=== PATIENT | female | born 1955 | race American Indian/Alaskan Native ===

== ENCOUNTER 2016-04-15 12:58 | Outpatient (CLI) | payer OTHER ==
--- NOTE | 2016-04-15 13:49 | Mammography Report ---
Bilateral mammogram: Patient with left mastectomy and reconstruction. Comparison to prior mammography in 2014 and 2015 is performed. Imaging of the left breast administration a generally fatty structure with some scattered benign-appearing calcifications. No suspicious findings or change from 2015. The right breast has a heterogeneously dense pattern. The findings are generally unchanged from 2014 and 2015 except that the small nodule that was newly described in 2015 is no longer identified. Ultrasound recommended at that time was not performed and is no longer needed. There are no currently suspicious findings. CAD is not captured. Impression: Stable benign mammogram. Recommendation: Annual mammogram followup. BI-RADS CATEGORY: 1 = Negative ACR BI-RADS MAMMOGRAPHIC CODES: 0 = Needs additional imaging evaluation; 1 = Negative; 2 = Benign; 3 = Probably benign; 4 = Suspicious; 5 = Malignant; 6 = Known biopsy-proven malignancy COMMENT: 1. Dense breast tissue, i.e., adenosis, fibrocystic changes, etc., may obscure an underlying neoplasm. 2. Approximately 10% of cancers are not detected with mammography. 3. A negative mammography report should not delay biopsy if a clinically suspicious mass is present.
== END 2016-04-15 12:59 | disposition home or self-care (01) ==
LOC: MAMMO 12:58
DX: C50.919 Malignant neoplasm of unspecified site of unspecified female breast (principal); R92.8 Other abnormal and inconclusive findings on diagnostic imaging of breast; R92.1 Mammographic calcification found on diagnostic imaging of breast; Z90.12 Acquired absence of left breast and nipple
CPT/HCPCS: 77066; G0204

== ENCOUNTER 2020-05-07 07:33 | Outpatient (CLI) | payer MEDICARE ==
--- NOTE | 2020-05-07 10:24 | Mammography Report ---
ULTRASOUND GUIDED LEFT BREAST BIOPSY, 05/07/2020 BILATERAL DIAGNOSTIC MAMMOGRAM CLINICAL INFORMATION / INDICATION: ABNORMAL MAMMOGRAM. Patient has abnormality in the left breast at the 11:00 position approximately 7 cm from the nipple which requires further evaluation and biopsy COMPARISON: Left breast ultrasound from 04/23/2020 PROCEDURE: Risks, benefits, and indications to the procedure were discussed with the patient in detail, includin g bleeding, infection, hematoma formation, and inadequate tissue sampling. The patient agreed to proc eed with both verbal and written consent. A timeout procedure was performed with two patient identifi ers. The breast was prepped and draped in the usual sterile fashion. Lidocaine 1% was used for local anest hesia. Under direct ultrasound guidance, 3 14-gauge core samples were obtained of the left breast fin ding. A biopsy marker was then placed. Biopsy device was removed and hemostasis achieved with manual pressure. A sterile dressing was applied to the skin. The patient tolerated the procedure without difficulty. No complications were encountered. Postbiopsy instructions were discussed with the patient and given in writing. Specimens were sent to pathology. The patient was then sent for a confirmatory mammogram to demonstrate adequate clip positioning in th e area in question. IMPRESSION: 1. Technically successful ultrasound guided left breast breast biopsy. 2. The post procedure mammogram did not demonstrate the left-sided breast clip; however, there is a s mall amount of breast tissue and there is difficulty getting the entire [id number] to demonstrate the clip which is fairly posterior. Also placement of the clip was clearly seen under ultrasound. Biopsy results are pending and will be reported in an addendum. Signer Name: Brandon Rod MD Signed: 05/07/2020 10:20 AM Workstation Name: [id number]
== END 2020-05-07 07:34 | disposition home or self-care (01) ==
LOC: US 07:33
PROVIDERS: ATTEND Surgery
DX: N63.22 Unspecified lump in the left breast, upper inner quadrant (principal); I10 Essential (primary) hypertension; R92.8 Other abnormal and inconclusive findings on diagnostic imaging of breast; Z85.3 Personal history of malignant neoplasm of breast; Z79.899 Other long term (current) drug therapy
CPT/HCPCS: 77066; 88305; 88341; 88342

== ENCOUNTER 2020-06-04 09:03 | Outpatient (CLI) | payer MEDICARE ==
[2020-06-04 10:25] LABS: Blood Urea Nitrogen 10 mg/dL (7-17)
--- NOTE | 2020-06-04 11:42 | Cat Scan Report ---
CT ABDOMEN AND PELVIS WITH CONTRAST HISTORY: MAIN. Breast cancer COMPARISON: None. TECHNIQUE: CT images of the abdomen and pelvis were obtained following administration of intravenous contrast. All CT scans at this location are performed using CT dose reduction for ALARA by means of automated exposure control. CONTRAST: 100 ml of intravenous contrast administered. FINDINGS: Lungs/bones: Mild increased interstitial prominence seen in lung bases. There is a nodular density a djacent to the pleura measuring 1.1 x 0.7 cm Abdomen/pelvis: Diffuse fatty infiltration of the liver. Heterogeneity is seen throughout the liver. No focal liver lesions seen. Spleen appears normal. Pancreas gallbladder appears normal. Bilateral k idneys appear normal. Adrenal glands show mild nodularity. Adrenal nodule left facet demonstrates ant erior 4 abnormal. There is incomplete distention of the left colon and sigmoid colon. Evaluation for wall thickening is limited. No surrounding inflammation is seen. No bowel obstruction is seen. Appendix appears normal. Atherosclerotic changes seen throughout the aorta. Portal vein is patent. A few mildly prominent per iportal nodes are seen. Largest periportal node measures 2.2 x 1.1 cm. IMPRESSION: 1. Increased interstitial prominence in the lung bases. There is a pulmonary nodule within left lower lung largest measuring 1.1 x 0.7 cm. Given patient's history of breast cancer CT chest is recommende d. 2. Fatty infiltration of the liver. 3. Prominent periportal nodes largest measuring 2.2 x 1.1 cm. 4. Left adrenal nodule does not fit the strict criteria for adenoma. Attentional follow-up recommende d. Signer Name: Mack Griffith MD Signed: 06/04/2020 11:38 AM Workstation Name: [email or web address]
--- NOTE | 2020-06-04 13:53 | Nuclear Medicine Report ---
NUCLEAR MEDICINE BONE SCAN, WHOLE BODY INDICATION: BREAST CANCER. TECHNIQUE: 25.5 mCi of Tc-99m MDP were injected IV. Whole body images were obtained. COMPARISON: Correlation is made with CT abdomen pelvis with contrast performed the same day.. FINDINGS: Skeletal Structures: Fairly symmetric, likely degenerative uptake is present involving the shoulders , hips, right knee and feet. Skeletal Lesions: None. Soft Tissues: Normal. Kidneys: Normal, symmetric activity. Additional Findings: None. IMPRESSION: Degenerative findings as described. No evidence for osseous metastasis on bone scan.. Signer Name: Jerrod Stern Jr, MD Signed: 06/04/2020 1:49 PM Workstation Name: [id number]
== END 2020-06-04 09:04 | disposition home or self-care (01) ==
LOC: NM 09:03
PROVIDERS: ATTEND Surgery
DX: C50.212 Malignant neoplasm of upper-inner quadrant of left female breast (principal); K76.0 Fatty (change of) liver, not elsewhere classified; R16.0 Hepatomegaly, not elsewhere classified; I70.0 Atherosclerosis of aorta; R91.1 Solitary pulmonary nodule
CPT/HCPCS: 36415; 74177; 78306; 82565; 84520; A9503; Q9967

== ENCOUNTER 2020-06-19 07:10 | Outpatient (CLI) | payer MEDICARE ==
[2020-06-19 07:53] LABS: Blood Urea Nitrogen 10 mg/dL (7-17)
--- NOTE | 2020-06-19 09:31 | Cat Scan Report ---
CT CHEST WITH CONTRAST INDICATION / CLINICAL INFORMATION: Breast cancer. TECHNIQUE: Axial CT images were obtained through the chest after 100 cc Omnipaque [address]. [address] scans at this location are performed using CT dose reduction for ALARA by means of automated exposure contr ol. COMPARISON: CT abdomen and pelvis with contrast from 06/04/2020. FINDINGS: HEART: No significant abnormality. VASCULATURE: The aorta is normal in caliber and mildly calcified. No significant coronary atheroscler osis or other significant abnormalities. LYMPH NODES: No significant adenopathy. TRACHEA AND BRONCHI:No significant abnormality. LUNGS: The previously described solid noncalcified posterior subpleural left lower lobe nodule is aga in seen measuring 9.3 x 5.8 mm on image 74 of series 2. This nodule previously measured 9.8 x 5.5 mm by remeasurement. No other suspicious nodule or mass. No suspicious area of consolidation. There is m ild bibasilar atelectasis. PLEURA: No significant pleural effusion. No pneumothorax. UPPER ABDOMEN: Unchanged hepatic steatosis and periportal adenopathy. No other significant abnormalit y. BONES: No significant abnormality. ADDITIONAL FINDINGS: Status post left mastectomy. No distinct mass in the right breast. IMPRESSION: 1. Left lower lobe nodule as above is consistent with metastatic disease until proven otherwise. No o ther evidence of metastatic disease in the chest. 2. Upper abdominal findings as above are unchanged with additional incidental findings as above. Signer Name: Merrill Jauregui MD Signed: 06/19/2020 9:27 AM Workstation Name: [id number]
== END 2020-06-19 07:11 | disposition home or self-care (01) ==
LOC: CT 07:10
PROVIDERS: ATTEND Surgery
DX: C50.212 Malignant neoplasm of upper-inner quadrant of left female breast (principal); R91.1 Solitary pulmonary nodule; J98.11 Atelectasis; I70.0 Atherosclerosis of aorta; K76.0 Fatty (change of) liver, not elsewhere classified
CPT/HCPCS: 36415; 71260; 82565; 84520; Q9967

== ENCOUNTER 2020-10-14 08:51 | Outpatient (CLI) | payer MEDICARE ==
--- NOTE | 2020-10-14 11:10 | Ultrasound Report ---
LEFT DIGITAL DIAGNOSTIC MAMMOGRAM WITH CAD CONVENTIONAL, 10/14/2020 LEFT LIMITED BREAST ULTRASOUND CLINICAL INFORMATION / INDICATION: Follow-up postbiopsy. TECHNIQUE: Digital left mammographic imaging was performed. Limited ultrasound was performed. This ex amination was interpreted with the benefit of Computer-Aided Detection (CAD) analysis. COMPARISON: 05/07/20. FINDINGS: Breast Density: The breasts are almost entirely fatty. MAMMOGRAPHIC FINDINGS: There is a left mastectomy with TRAM flap reconstruction. I see no evidence of a mass, posterior shadowing or distortion. Postbiopsy changes in the left breast superiorly have res olved. No new abnormality is seen. ULTRASOUND FINDINGS: Targeted ultrasound evaluation was performed of the area of interest. There is a biopsy clip at the 11:00 position 10 cm from the nipple. I see no evidence of a mass, posterior sh adowing, distortion or other abnormality. IMPRESSION: No mammographic or sonographic evidence of malignancy. Follow up recommendation: Back to schedule. BI-RADS Category 2: Benign. A "normal" or negative report should not discourage follow up or biopsy of a clinically significant f inding. A written summary of these findings will be mailed to the patient. The patient will be entered into a mammography reporting system which will generate a reminder letter for the patient's next appointmen t at the appropriate interval. According to the [employer], yearly mammograms are recommended starting at age 40 and continuing as long as a woman is in good health. Breast MRI is recommended for women with an gus roximately 20-25% or greater lifetime risk of breast cancer, including women with a strong family his tory of breast or ovarian cancer and women who have been treated for Hodgkin's disease. Signer Name: Simeon Hdz MD Signed: 10/14/2020 11:05 AM Workstation Name: [id number]
== END 2020-10-14 08:52 | disposition home or self-care (01) ==
LOC: SPVWC 08:51
PROVIDERS: ATTEND Surgery
DX: C50.212 Malignant neoplasm of upper-inner quadrant of left female breast (principal)